=== PATIENT | male | born 1985 | race Caucasian/White ===

== ENCOUNTER 2020-10-03 09:24 | Emergency (ER) | payer OTHER ==
[~2020-10-03] VITALS: Ht 182.9 cm; Wt 86.2 kg
[~2020-10-03 09:24] MED LIST: NOHOMEMEDICATIONS
[2020-10-03 09:27] VITALS: BP 118/71
[2020-10-03] MEDS ORDERED: ZOFRAN ODT4 MG PO (10:20)
== END 2020-10-03 10:30 | disposition home or self-care (01) ==
LOC: ER 09:24
DX: U07.1 COVID-19 (principal); Z88.0 Allergy status to penicillin; Z88.2 Allergy status to sulfonamides